=== PATIENT | female | born 1990 ===

== ENCOUNTER 2016-12-07 18:40 | Emergency (ER) | payer OTHER ==
[2016-04-29 10:12] VITALS: BMI 29.7
[2016-12-07 23:42] LABS: SQUAMOUS EPITHIAL 10 /hpf (0-5); URINE BACTERIA OCC (<OCC); URINE BILIRUBIN NEGATIVE (NEGATIVE); URINE BLOOD 1+ (NEGATIVE); URINE CLARITY Hazy (Clear); URINE COLOR Yellow (YELLOW); URINE GLUCOSE (UA) NORMAL (Normal); URINE LEUKOCYTE ESTERASE 3+ Leu/uL (Negative); URINE NITRATE NEGATIVE (NEGATIVE); URINE PROTEIN NEGATIVE (NEGATIVE); URINE UROBILINOGEN NORMAL mg/dL (0.2-1.0)
[2016-12-08 00:05] LABS: HCG,QUALITATIVE URINE NEGATIVE (NEGATIVE)
--- NOTE | 2016-12-08 11:27 | RAD ---
PROCEDURE: Radiographs of the Lumbar Spine. HISTORY: TRAUMA COMPARISON: No prior. FINDINGS: BONES: There is normal alignment of the lumbar vertebral bodies. Lumbar lordosis is maintained. Vertebral bodies are normal in height. There is an oblique lucency in the region of pars interarticularis at L5. DISC SPACES: There is mild degenerative disc disease at L5-S1. The remaining disc heights are maintained. OTHER FINDINGS: There are no pathologic soft tissue calcifications. Both sacroiliac joints are normal. IMPRESSION: 1. Question of spondylolysis at L5. Dedicated oblique projections at L5-S1 are recommended for further evaluation. 2. No acute compression fracture. 3. Mild degenerative disc disease at L5-S1.
== END 2016-12-07 23:06 | disposition home or self-care (01) ==
LOC: C.ER 18:40
DX: S39.012A Strain of muscle, fascia and tendon of lower back, initial encounter (principal); X50.9XXA Other and unspecified overexertion or strenuous movements or postures, initial encounter; Y93.89 Activity, other specified; Y92.009 Unspecified place in unspecified non-institutional (private) residence as the place of occurrence of the external cause

== ENCOUNTER 2017-05-19 14:27 | Emergency (ER) | payer OTHER ==
[2017-05-19 14:27] VITALS: BMI 29.7
[2017-05-19 15:03] VITALS: TEMP 97.9
--- NOTE | 2017-05-19 16:02 | C.PDOC ---
History Of Present Illness 26 year old female presents to the ED for evaluation of a sharp pulling sensation felt to her lower back this morning. [place] she [place] a wagon that was loaded with around 100 lbs of luggage. Patient took 400mg Ibuprofen without relief. Patient denies urinary/bowel incontinence, saddle anesthesia, extremity numbness/weakness, tingling sensation , trauma/falls. Time Seen by Provider: 05/19/17 15:33 Chief Complaint (Nursing): Back Pain History Per: Patient History/Exam Limitations: no limitations Onset/Duration Of Symptoms: Hrs Current Symptoms Are (Timing): Still Present Quality Of Discomfort: "Pain" Previous Symptoms: Back Pain Associated Symptoms: denies: Incontinence, New Weakness, New Numbness Additional History Per: Patient Past Medical History Reviewed: Historical Data, Nursing Documentation, Vital Signs Vital Signs: Last Vital Signs Temp 97.9 F 05/19/17 14:59 Pulse 64 05/19/17 16:31 Resp 18 05/19/17 16:31 BP 99/62 L 05/19/17 16:31 Pulse Ox 99 05/19/17 23:59 - Medical History PMH: No Chronic Diseases Surgical History: No Surg Hx - [facility] Procedures DELIVERY OF PRODUCTS OF CONCEPTION, EXTERNAL APPROACH (07/07/15) DIVISION OF FEMALE PERINEUM, EXTERNAL APPROACH (07/07/15) MONITORING OF POC, CARDIAC RATE, RN HEDIS APPROACH (07/07/15) Family History: States: Unknown Family Hx - Social History Hx Tobacco Use: No Hx Alcohol Use: Yes Hx Substance Use: No - Immunization History Hx Tetanus Toxoid Vaccination: No Hx Influenza Vaccination: No Hx Pneumococcal Vaccination: No Review Of Systems Genitourinary: Negative for: Incontinence Musculoskeletal: Positive for: Back Pain (lower ) Neurological: Negative for: Weakness, Numbness Physical Exam - Physical Exam Appears: Non-toxic, No Acute Distress Skin: Normal Color, Warm, Dry Neck: Normal ROM, Supple Back: No Vertebral Tenderness, Muscle Spasm (right-sided, on palpation ), Paraspinal Tenderness (lumbar ) Neurological/Psych: Oriented x3, Normal Speech, Normal Cognition, Normal Motor, Normal Sensation Gait: Steady ED Course And Treatment O2 Sat by Pulse Oximetry: 99 (on RA ) Pulse Ox Interpretation: Normal Medical Decision Making Medical Decision Making: pt with low back pain after pulling heavy item. neurologically intact, no midline vertebral tenderness, will d/c with nsaids and flexeril Disposition Counseled Patient/Family Regarding: Diagnosis, Need For Followup, Rx Given - Disposition Referrals: [facility] [Outside] Disposition: HOME/ ROUTINE Disposition Time: 16:48 Condition: STABLE Additional Instructions: Please follow up with your doctor or in medical clinic in a few days. Take ibuprofen every 6 hours (with food) for the next few days. Take muscle relaxant every 8 hours if at home, (makes you sleepy, no operating machinery, driving or working) or only at bedtime if you work during the daytime. Avoid heavy lifting. pushing and pulling. Warm or cold compresses to affected area- what ever feels better. Return to ER for any worse symptoms. Prescriptions: Cyclobenzaprine [Cyclobenzaprine HCl] 10 mg PO Q8 #9 tab Ibuprofen [Motrin] 600 mg PO TID #30 tab Instructions: Acute Low Back Pain (ED) Forms: General Discharge Instructions, [facility] ([place]), Work Excuse - Clinical Impression Clinical Impression: Lumbar sprain - PA / [employer] / Resident Statement MD/DO has reviewed & agrees with the documentation as recorded. - Scribe Statement The provider has reviewed the documentation as recorded by the Scribe All medical record entries made by the Scribe were at my direction and personally dictated by me. I have reviewed the chart and agree that the record accurately reflects my personal performance of the history, physical exam, medical decision making, and the department course for this patient. I have also personally directed, reviewed, and agree with the discharge instructions and disposition.
[2017-05-19 16:31] VITALS: BP 99/62; PULSE 64; RESP 18
[2017-05-19 16:46] VITALS: O2SAT 99
== END 2017-05-19 17:00 | disposition home or self-care (01) ==
LOC: C.ER 14:27
DX: S33.5XXA Sprain of ligaments of lumbar spine, initial encounter (principal); X50.0XXA Overexertion from strenuous movement or load, initial encounter; Y92.520 Airport as the place of occurrence of the external cause; Y99.8 Other external cause status